=== PATIENT | female | born 1995 | race African-American/Black ===

== ENCOUNTER 2018-02-14 08:22 | Emergency (ER) | payer OTHER ==
[2018-02-14 08:40] VITALS: BP 116/61; PULSE 87; TEMP 98.6; BMI 21.6
--- NOTE | 2018-02-14 09:23 | PDOC ---
History of Present Illness - General Chief Complaint: Rash Stated Complaint: RASH Time Seen by Provider: 02/14/18 08:40 History Source: Patient Exam Limitations: No Limitations - History of Present Illness Initial Comments: 02/14/18 09:18 This is a 22-year-old woman without significant past medical history who presents emergency Department with pruritic rash to her extremities for the past 2 days since returning from the [facility]. Patient states she's been using medicated lotions she's been prescribed for her eczema which has helped alleviate symptoms. She denies fevers, chills, headaches, difficulty swallowing, difficulty breathing, drooling Past History - Past Medical History Allergies/Adverse Reactions: Allergies Allergy/AdvReac Type Severity Reaction Status Date / Time No Known Allergies Allergy Verified 02/14/18 08:36 Home Medications: Ambulatory Orders Mag Hydrox/Al Hydrox/Simeth [Mylanta Liquid] 30 ml PO QID #1 bottle 03/30/14 Ondansetron [Zofran Odt -] 4 mg SL BID #14 od.tablet 03/30/14 Mometasone Furoate 15 gm TP TID #1 tube 02/14/18 COPD: No - Immunization History Immunization Up to Date: Yes - Suicide/Smoking/Psychosocial Hx Smoking History: Never smoked Have you smoked in the past 12 months: No Number of Cigarettes Smoked Daily: 0 Information on smoking cessation initiated: No Hx Alcohol Use: No Drug/Substance Use Hx: Yes Substance Use Type: Marijuana Review of Systems - Review of Systems Able to Perform ROS?: Yes Is the patient limited Faroese proficient: No Constitutional: No: Symptoms Reported HEENTM: No: Symptoms Reported Respiratory: No: Symptoms reported Cardiac (ROS): No: Symptoms Reported ABD/GI: No: Symptoms Reported : No: Symptoms Reported Musculoskeletal: No: Symptoms Reported Integumentary: Yes: See HPI Neurological: No: Symptoms reported Endocrine: No: Symptoms Reported Hematologic/Lymphatic: No: Symptoms Reported *Physical Exam - Vital Signs Last Vital Signs Temp Pulse Resp BP Pulse Ox 98.6 F 87 20 116/61 100 02/14/18 08:37 02/14/18 08:37 02/14/18 08:37 02/14/18 08:37 02/14/18 08:37 - Physical Exam General Appearance: Yes: Appropriately Dressed. No: Apparent Distress HEENT: positive: EOMI, DONTAE, Normal ENT Inspection, Normal Voice Neck: positive: Trachea midline, Supple. negative: Stridor Respiratory/Chest: positive: Lungs Clear, Normal Breath Sounds. negative: Respiratory Distress, Accessory Muscle Use Integumentary: positive: Rash (Scattered maculopapular rash noted to extremities x4) Neurologic: positive: Alert, Normal Response Medical Decision Making - Medical Decision Making 02/14/18 09:21 A/P: 22-year-old female without significant medical history with rash to extremities 4 Scattered pruritic raised pink maculopapular rash extending from the tops of the feet to the knees and from the dorsum of the hands to the elbows Lungs clear to auscultation bilaterally No stridor present No oropharyngeal edema noted Mometasone prescription as an outpatient with referral for dermatology *DC/Admit/Observation/Transfer Diagnosis at time of Disposition: Dermatitis - Discharge Dispostion Disposition: HOME Condition at time of disposition: Stable Decision to Admit order: No - Prescriptions Prescriptions: Mometasone Furoate 15 gm TP TID #1 tube - Referrals Referrals: Cole Bernard [Non Staff, Medical] - - Patient Instructions Additional Instructions: Apply mometasone cream to rash 3 times a day until symptoms resolve. You've been given a referral for helicopter pilot Dr. Bernard. Make an appointment if symptoms do not resolve within the next 7 days. Return to emergency department for shortness of breath, difficulty swallowing, difficulty breathing, wheezing or any other concerns. Thank you very much for choosing us to provide your emergent health care needs. - Post Discharge Activity
== END 2018-02-14 09:29 | disposition home or self-care (01) ==
LOC: JER 08:22 → JERFT 08:22
DX: L30.9 Dermatitis, unspecified (principal)
CPT/HCPCS: 99281-25

== ENCOUNTER 2018-10-17 14:02 | Inpatient (IN) | payer OTHER ==
--- NOTE | 2018-10-17 14:10 | PDOC ---
Rapid Medical Evaluation Chief Complaint: Pain, Acute Time Seen by Provider: 10/17/18 14:09 Medical Evaluation: Allergies Allergy/AdvReac Type Severity Reaction Status Date / Time No Known Allergies Allergy Verified 02/14/18 08:36 10/17/18 14:09 I have performed a brief in person evaluation of this patient. The patient presents with the CC of: abd pain HPI: Pt is a 23 YO female who complains of lower abd pain x 3 days. No hx of abd surgeries. LMP was the end of August 2018. PE: Skin: Clear Lungs: Clear Heart: RRR Abd: tender in the RLQ MS: Moves all extremities without difficulty Neuro: Alert and oriented Psych: Appropriate affect I have ordered the following: abd protocol ordered Pt will proceed to the main ED for further evaluation. Discharge Disposition - Diagnosis Abdominal pain Qualifiers: Abdominal location: right lower quadrant Qualified Code(s): R10.31 - Right lower quadrant pain - Discharge Dispostion Condition at time of disposition: Stable - Referrals - Patient Instructions - Post Discharge Activity
[2018-10-17 14:11] VITALS: BMI 21.7
--- NOTE | 2018-10-17 14:22 | PDOC ---
Attending Attestation - HPI HPI: 10/17/18 17:38 The patient is a 23 yo Female with a significant past medical history of non-op appendicitis who presents for 3 days of right lower abdominal pain. She states the pain onset was gradual. She states that on Monday the pain was dull, however , developed sharp pain to her RLQ on Monday. She also states she has been constipated for 3 days and had a loose BM today which alleviated her sharp pain . She reports a continued dull pain. Secondarily, she reports dysuria and states she went to urgent care where she was told she also has a UTI. The patient denies chest pain, shortness of breath, headache and dizziness. The patient denies fever, chills, nausea, vomit. The patient denies dysuria, frequency, urgency and hematuria. Allergies: NKDA Past surgical history: none reported - Physicial Exam PE: 10/17/18 17:38 GENERAL: The patient is in no acute distress. HEAD: Normal with no signs of trauma. EYES: PERRLA, EOMI, sclera anicteric, conjunctiva clear. ENT: Ears normal, nares patent, oropharynx clear without exudates. Moist mucous membranes. NECK: Normal range of motion, supple without lymphadenopathy, JVD, or masses. LUNGS: Breath sounds equal, clear to auscultation bilaterally. No wheezes, and no crackles. HEART:Regular rate and rhythm, normal S1 and S2 without murmur, rub or gallop. ABDOMEN: (+) RLQ tenderness. Soft, normoactive bowel sounds. No guarding, no rebound. No masses palpable. EXTREMITIES: Normal range of motion, no edema. No clubbing or cyanosis. No erythema, or tenderness. NEUROLOGICAL: Cranial nerves II through XII grossly intact. Normal speech. No focal neurological deficits. MUSCULOSKELETAL: Back non-tender to palpation, no CVA tenderness SKIN: Warm, Dry, normal turgor, no rashes or lesions noted. - Medical Decision Making 10/17/18 17:39 Documentation prepared by Earline Pena, acting as medical physics professor for Sharmin Pal MD <Earline Pena - Last Filed: 10/17/18 17:38> - Resident Resident Name: James Bates - ED Attending Attestation I have performed the following: I have examined & evaluated the patient, The case was reviewed & discussed with the resident, I agree w/resident's findings & plan, Exceptions are as noted - Medical Decision Making 10/17/18 16:49 EKG : Sinus tachycardia rate of 108 bpm, axis nml, intervals nml, no st elevation or depression RLQ tenderness and fever DD: Appendicitis, PID/TOA, UTI, obstructing kidney stone, Viral syndrome Will do: Labs CT Tylenol IVF ReAssess Dr Chandra in the ER to see this patient 10/18/18 12:[address] demonstrates pelvic fluid, appendix not visualized, no obstructing stone seen Pt admitted to hospitalist for serial abdominal examinations Will treat for UTI <Sharmin Pal - Last Filed: 10/18/18 12:20>
--- NOTE | 2018-10-17 14:23 | PDOC ---
History of Present Illness - General Chief Complaint: Pain, Acute Stated Complaint: R/O APPENDICITIS Time Seen by Provider: 10/17/18 14:09 - History of Present Illness Initial Comments: The pt is a 23F w/ a history of non-op appendicitis, ovarian cysts (reported possible PCOS) who presents for 3d of RLQ abdominal pain. Pain fluctuates between sharp and focal to dull and lower diffuse. Pain is worse with movement/ touch, better with recumbency, and is associated w/ nausea. She denies vomiting or diarrhea. She endorses dysuria and small hematuria as well as subjective fevers. Denies WARNER, vision changes, chest pain, SOB, or changes in sensation 10/17/18 15:15 Past History - Past Medical History Allergies/Adverse Reactions: Allergies Allergy/AdvReac Type Severity Reaction Status Date / Time No Known Allergies Allergy Verified 02/14/18 08:36 Home Medications: Ambulatory Orders NK [No Known Home Medication] 10/17/18 COPD: No Psychiatric Problems: No - Surgical History Cholecystectomy: No Lung Surgery: No - Immunization History Immunization Up to Date: Yes - Suicide/Smoking/Psychosocial Hx Smoking History: Never smoked Have you smoked in the past 12 months: No Number of Cigarettes Smoked Daily: 0 Information on smoking cessation initiated: No Hx Alcohol Use: No Drug/Substance Use Hx: No Substance Use Type: None Review of Systems - Review of Systems Able to Perform ROS?: Yes Comments:: GENERAL/CONSTITUTIONAL: No weakness HEAD, EYES, EARS, NOSE AND THROAT: No change in vision. No ear pain or discharge. No sore throat CARDIOVASCULAR: No chest pain or shortness of breath RESPIRATORY: Denies cough, hemoptysis GASTROINTESTINAL: per HPI GENITOURINARY: +dysuria, hematuria MUSCULOSKELETAL: No joint or muscle swelling or pain. No neck or back pain SKIN: No rash NEUROLOGIC: No headache, vertigo, loss of consciousness, or change in strength/ sensation ENDOCRINE: No increased thirst. No abnormal weight change HEMATOLOGIC/LYMPHATIC: No anemia, easy bleeding, or history of blood clots ALLERGIC/IMMUNOLOGIC: No hives or skin allergy 10/17/18 14:22 Is the patient limited Macedonian proficient: No *Physical Exam - Vital Signs Last Vital Signs Temp Pulse Resp BP Pulse Ox 102.8 F H 121 H 18 129/72 100 10/17/18 14:08 10/17/18 14:08 10/17/18 14:08 10/17/18 14:08 10/17/18 14:08 - Physical Exam Comments: GENERAL: Awake, alert, and fully oriented, in no acute distress HEAD: No signs of trauma, normocephalic, atraumatic EYES: PERRLA, EOMI, sclera anicteric, conjunctiva clear ENT: Hearing grossly normal, nares patent, oropharynx clear without exudates. No uvular deviation. Moist mucosa LUNGS: No distress, speaks full sentences, clear to auscultation bilaterally HEART: Regular rate and rhythm, normal S1 and S2, no murmurs appreciated, peripheral pulses normal and equal bilaterally ABDOMEN: Soft, non-distended, RLQ TTP w/ rebound w/o guarding, +BS EXTREMITIES : Normal inspection, Normal range of motion, no edema. No clubbing or cyanosis NEUROLOGICAL: Cranial nerves II through XII grossly intact. Normal speech, normal gait, no focal sensorimotor deficits SKIN: Warm, Dry 10/17/18 14:22 Moderate Sedation - Procedure Monitoring Vital Signs: Procedure Monitoring Vital Signs Temperature 102.8 F H 10/17/18 14:08 Pulse Rate 121 H 10/17/18 14:08 Respiratory Rate 18 10/17/18 14:08 Blood Pressure 129/72 10/17/18 14:08 O2 Sat by Pulse Oximetry (%) 100 10/17/18 14:08 ED Treatment Course - LABORATORY CBC & Chemistry Diagram: 10/18/18 06:00 10/18/18 06:00 Medical Decision Making - Medical Decision Making The patient is a 23F w/ 3d of RLQ abdominal pain w/ associated nausea, dysuria, and hematuria Ddx: appendicitis, UTI/pyelo, ovarian cyst/rupture, considered but not likely colitis, ectopic /TOA, fibroids ED Course CMP, CBC, T/S, Lactate, Coags, UA, UCx ECG CT A&P w/ IV contrast UA w/ evidence of UTI 10/17/18 15:26 POCUS significant for cystitis, appendix not identified Will hold abx for now until CT 10/17/18 16:57 CT w/o definite evidence of appendicitis, evidence of cystitis seen again -Will not consult surgery at this time UTI -Rocephin 1g IV once 10/17/18 17:53 Plan for admit for IV abx for UTI v pyelo Pt continues to be febrile despite Ofirmev and IVF 10/17/18 18:22 Patient reports improvement in symptoms s/p Tylenol 10/17/18 18:46 Dispo: Admit *DC/Admit/Observation/Transfer Diagnosis at time of Disposition: Abdominal pain Qualifiers: Abdominal location: right lower quadrant Qualified Code(s): R10.31 - Right lower quadrant pain UTI (urinary tract infection) Qualifiers: Urinary tract infection type: acute cystitis Hematuria presence: without hematuria Qualified Code(s): N30.00 - Acute cystitis without hematuria - Discharge Dispostion Condition at time of disposition: Good Decision to Admit order: Yes - Referrals - Patient Instructions - Post Discharge Activity
[2018-10-17] MEDS ORDERED: ACETAMINOPHEN INJECTION 100 ML IVPB ONE (14:40)
[2018-10-17] MEDS ORDERED: ACETAMINOPHEN 1000 MG/100 ML VIAL (NON FORMULARY) IVPB ONE (14:56)
[2018-10-17] MEDS ORDERED: SODIUM CHLORIDE 0.9% 500 ML INFUS.BAG IV ONE (14:56)
[2018-10-17 14:57] LABS: URINE APPEARANCE SLCLOUDY; URINE BILIRUBIN NEGATIVE (<2.0 mg/dL); URINE COLOR YELLOW; URINE GLUCOSE (UA) NEGATIVE (NEGATIVE); URINE KETONE 1+ (NEGATIVE); URINE LEUK ESTERASE 3+ (NEGATIVE); URINE NITRITE NEGATIVE (NEGATIVE); URINE PROTEIN 1+ (NEGATIVE); URINE UROBILINOGEN NEGATIVE mg/dL (0.2-1.0)
[2018-10-17 15:17] LABS: EPI CELLS RARE /HPF (FEW); URINE BACTERIA MANY /hpf (NONE SEEN); URINE MUCUS FEW
[2018-10-17 15:18] LABS: BASO % 0.2 % (0-2.0); HEMATOCRIT 34.7 % (32.4-45.2); HEMOGLOBIN 11.7 GM/dL (10.7-15.3); MCH 29.1 pg (25.7-33.7); MCHC 33.7 g/dl (32.0-36.0); MEAN CELL VOLUME 86.4 fl (80-96); MEAN PLT VOLUME 8.3 fl (7.5-11.1); MONO % 8.6 % (3.8-10.2); NEUT % 84.2 % (42.8-82.8); PLATELET COUNT 234 K/MM3 (134-434); RBC 4.01 M/mm3 (3.60-5.2); RDW 12.8 % (11.6-15.6); WHITE BLOOD COUNT 10.2 K/mm3 (4.0-10.0)
[2018-10-17 15:32] LABS: INR 1.34 (0.83-1.09); PROTHROMBIN TIME (PATIENT) 15.9 SEC (9.7-13.0)
[2018-10-17 15:35] LABS: ACTIVATED PTT 34.8 SECONDS (25.2-36.5)
[2018-10-17 16:05] LABS: ALK PHOS 56 U/L (45-117); ANION GAP 9 MMOL/L (8-16); BILIRUBIN,TOTAL 0.9 mg/dL (0.2-1); BLOOD UREA NITROGEN 10 mg/dL (7-18); CALCIUM 8.7 mg/dL (8.5-10.1); CHLORIDE 97 mmol/L (98-107); CO2 26 mmol/L (21-32); CREATININE 0.9 mg/dL (0.55-1.3); GLUCOSE,RANDOM 96 mg/dL (74-106); LIPASE 72 U/L (73-393); POTASSIUM 3.2 mmol/L (3.5-5.1); SGOT/AST 13 U/L (15-37); SGPT/ALT 13 U/L (13-61); SODIUM 133 mmol/L (136-145); TOT PROT 8.3 g/dl (6.4-8.2)
[2018-10-17] MEDS ORDERED: ONDANSETRON 4 MG/2 ML VIAL IVPUSH ONE (16:20)
[2018-10-17] MEDS ORDERED: ONDANSETRON 4 MG/2 ML VIAL ONE (16:27)
[2018-10-17] MEDS: SODIUM CHLORIDE 1,000 ML IV SCH ×2 (16:34→16:43)
[2018-10-17] MEDS: LACTATED RINGERS SOLUTION 1,000 ML/1,000 ML INFUS.BAG IV SCH (16:43)
[2018-10-17] MEDS ORDERED: CEFTRIAXONE 1 GM in DEXTROSE 5%-WATER - 50 ML IVPB ONE (18:16)
[2018-10-17] MEDS ORDERED: CEFTRIAXONE 1 GM/50 ML BAG ONE (18:29)
--- NOTE | 2018-10-17 19:08 | EKG ---
Test Reason : Blood Pressure : / mmHG Vent. Rate : 108 BPM Atrial Rate : 108 BPM P-R Int : 142 ms QRS Dur : 076 ms QT Int : 314 ms P-R-T Axes : 068 076 061 degrees QTc Int : 420 ms SINUS TACHYCARDIA OTHERWISE NORMAL ECG WHEN COMPARED WITH ECG OF 11-AUG-2013 16:17, NO SIGNIFICANT CHANGE WAS FOUND Confirmed by ANNA DUGGAN MD ([id number]) on 10/17/2018 7:08:08 PM Referred By: Confirmed By:ANNA DUGGAN MD
--- NOTE | 2018-10-17 19:18 | HP ---
CHIEF COMPLAINT: abd pain/fever PCP: none HISTORY OF PRESENT ILLNESS: Patient is a 23 yo with a PMHx of non-op appendicitis (last year), HPV, presented with 7/10, intermittent, non-radiating, RLQ abdominal pain that started 2 days ago. Patient then developed fevers, nausea, and chills yesterday. Denies vomiting. She said these symptoms were similar to her appendicitis symptoms last year. She mentions that she had a "kidney infection" last year and was treated at [facility] with no memory of the details. She also endorses an increase in urinary frequency with discomfort when urinating. She denies travel, sick contacts, vomiting, sob, chest pain, bloody stool, vaginal discharge, changes in bowel movements. LMP: 09/13, usually last 1 week. Last [employer]PER[employer] visit this past summer. ER course was notable for: (1) Temp 102.8, HR 121 (2) U/a +: 3+ LE, 303 WBC (3) CT w/o definite evidence of appendicitis, evidence of cystitis seen again Recent Travel: denies PAST MEDICAL HISTORY: per hpi PAST SURGICAL HISTORY: n/a Social History: Smoking: denies tobacco Alcohol: occasionally Drugs: marijuana 5x a week Sexually active with boyfriend. 1 partner only. No contraception Family History: Allergies No Known Allergies Allergy (Verified 02/14/18 08:36) HOME MEDICATIONS: Home Medications Medication Instructions Recorded NK [No Known Home Medication] 10/17/18 REVIEW OF SYSTEMS CONSTITUTIONAL: fevers, chills Absent: diaphoresis, generalized weakness, malaise, loss of appetite, weight change HEENT: Absent: rhinorrhea, nasal congestion, throat pain, throat swelling, difficulty swallowing, mouth swelling, ear pain, eye pain, visual changes CARDIOVASCULAR: Absent: chest pain, syncope, palpitations, irregular heart rate, lightheadedness , peripheral edema RESPIRATORY: Absent: cough, shortness of breath, dyspnea with exertion, orthopnea, wheezing, stridor, hemoptysis GASTROINTESTINAL: abd pain, nausea Absent: abdominal distension, vomiting, diarrhea, constipation, melena, hematochezia GENITOURINARY: Absent: dysuria, frequency, urgency, hesitancy, hematuria, flank pain, genital pain MUSCULOSKELETAL: Absent: myalgia, arthralgia, joint swelling, back pain, neck pain SKIN: Absent: rash, itching, pallor HEMATOLOGIC/IMMUNOLOGIC: Absent: easy bleeding, easy bruising, lymphadenopathy, frequent infections ENDOCRINE: Absent: unexplained weight gain, unexplained weight loss, heat intolerance, cold intolerance NEUROLOGIC: Absent: headache, focal weakness or paresthesias, dizziness, unsteady gait, seizure, mental status changes, bladder or bowel incontinence PSYCHIATRIC: Absent: anxiety, depression, suicidal or homicidal ideation, hallucinations. PHYSICAL EXAMINATION Vital Signs - 24 hr 10/17/18 10/17/18 10/17/18 14:08 16:00 18:38 Temperature 102.8 F H 101.3 F H 99.4 F Pulse Rate 121 H Pulse Rate [ 110 H 84 Apical] Respiratory 18 18 17 Rate Blood Pressure 129/72 Blood Pressure 101/66 105/70 [Left Arm] O2 Sat by Pulse 100 98 100 Oximetry (%) GENERAL: Awake, alert, and fully oriented, in no acute distress. HEAD: Normal with no signs of trauma. EYES: extraocular movements intact, sclera anicteric, conjunctiva clear. No lid lag. EARS, NOSE, THROAT: oropharynx clear without exudates. Moist mucous membranes. NECK: supple without lymphadenopathy, JVD, or masses. LUNGS: Breath sounds equal, clear to auscultation bilaterally. No wheezes, and no crackles. HEART: Regular rate and rhythm, normal S1 and S2 without murmur, rub or gallop. ABDOMEN: soft, RLQ tenderness. R CVA tenderness, no guarding, no rebound, negative laughlin, negative rovsings UPPER EXTREMITIES: 2+ pulses, warm, well-perfused. No cyanosis. No clubbing. No peripheral edema. LOWER EXTREMITIES: 2+ pulses, warm, well-perfused. No calf tenderness. No peripheral edema. NEUROLOGICAL: Cranial nerves II-XII intact. Normal speech. Normal gait. PSYCHIATRIC: Cooperative. Good eye contact. Appropriate mood and affect. SKIN: Warm, dry, normal turgor, no rashes or lesions noted, normal capillary refill. Laboratory Results - last 24 hr 10/17/18 10/17/18 10/17/18 14:23 14:23 15:00 WBC 10.2 H RBC 4.01 Hgb 11.7 Hct 34.7 MCV 86.4 MCH 29.1 MCHC 33.7 RDW 12.8 Plt Count 234 MPV 8.3 Absolute Neuts (auto) 8.6 H Neutrophils % 84.2 H Lymphocytes % 7.0 L D Monocytes % 8.6 Eosinophils % 0.0 D Basophils % 0.2 Nucleated RBC % 0 PT with INR INR PTT (Actin FS) Sodium Potassium Chloride Carbon Dioxide Anion Gap BUN Creatinine Creat Clearance w eGFR Random Glucose Lactic Acid Calcium Total Bilirubin AST ALT Alkaline Phosphatase Total Protein Albumin Lipase Urine Color Yellow Urine Appearance Slcloudy Urine pH 5.0 D Ur Specific [place] 1.015 Urine Protein 1+ H Urine Glucose (UA) Negative Urine Ketones 1+ H Urine Blood 2+ H Urine Nitrite Negative Urine Bilirubin Negative Urine Urobilinogen Negative Ur Leukocyte Esterase 3+ H Urine WBC (Auto) 303 Urine RBC (Auto) 25 Ur Epithelial Cells Rare Urine Bacteria Many Urine Mucus Few Urine HCG, Qual Negative Blood Type Antibody Screen 10/17/18 10/17/18 10/17/18 15:00 15:00 15:00 WBC RBC Hgb Hct MCV MCH MCHC RDW Plt Count MPV Absolute Neuts (auto) Neutrophils % Lymphocytes % Monocytes % Eosinophils % Basophils % Nucleated RBC % PT with INR 15.90 H INR 1.34 H PTT (Actin FS) 34.8 Sodium 133 L Potassium 3.2 L Chloride 97 L Carbon Dioxide 26 Anion Gap 9 BUN 10 Creatinine 0.9 Creat Clearance w eGFR > 60 Random Glucose 96 Lactic Acid Calcium 8.7 Total Bilirubin 0.9 AST 13 L ALT 13 Alkaline Phosphatase 56 Total Protein 8.3 H Albumin 4.0 Lipase 72 L Urine Color Urine Appearance Urine pH Ur Specific [place] Urine Protein Urine Glucose (UA) Urine Ketones Urine Blood Urine Nitrite Urine Bilirubin Urine Urobilinogen Ur Leukocyte Esterase Urine WBC (Auto) Urine RBC (Auto) Ur Epithelial Cells Urine Bacteria Urine Mucus Urine HCG, Qual Blood Type O POSITIVE Antibody Screen Negative 10/17/18 10/17/18 15:00 15:00 WBC RBC Hgb Hct MCV MCH MCHC RDW Plt Count MPV Absolute Neuts (auto) Neutrophils % Lymphocytes % Monocytes % Eosinophils % Basophils % Nucleated RBC % PT with INR INR PTT (Actin FS) Sodium Potassium Chloride Carbon Dioxide Anion Gap BUN Creatinine Creat Clearance w eGFR Random Glucose Lactic Acid 1.2 Calcium Total Bilirubin AST ALT Alkaline Phosphatase Total Protein Albumin Lipase Urine Color Urine Appearance Urine pH Ur Specific [place] Urine Protein Urine Glucose (UA) Urine Ketones Urine Blood Urine Nitrite Urine Bilirubin Urine Urobilinogen Ur Leukocyte Esterase Urine WBC (Auto) Urine RBC (Auto) Ur Epithelial Cells Urine Bacteria Urine Mucus Urine HCG, Qual Blood Type Cancelled Antibody Screen ASSESSMENT/PLAN: 23 yo with a PMHx of non-op appendicitis (last year), HPV, presented with 7/10 , intermittent, non-radiating, RLQ abdominal pain, fevers, chills with urinary discomfort. #Sepsis 2/2 Acute Pyelonephritis/Complicated UTI -Temp 102.8, HR 121 -U/a +: 3+ LE, 303 WBC -CT w/o definite evidence of appendicitis, evidence of cystitis seen again -1x Ceftriaxone in ED -Cont. Ceftriaxone 2gm daily -IV fluids -Bcx, ucx -Tylenol PRN for pain/fever #FEN -IV fluids @ 75 -monitor -regular diet #Dvt -lovenox 40 sq dispo: obs Visit type - Emergency Visit Emergency Visit: Yes ED Registration Date: 10/18/18 Care time: The patient presented to the Emergency Department on the above date and was hospitalized for further evaluation of their emergent condition. - New Patient This patient is new to me today: Yes Date on this admission: 10/19/18 - Critical Care Critical Care patient: No
[2018-10-17] MEDS ORDERED: POTASSIUM CHLORIDE TABS 20 MEQ TABLET.ER (FP) PO ONE (19:33)
--- NOTE | 2018-10-17 19:36 | PN ---
Teaching Attending Note Name of Resident: Yenifer Lynch ATTENDING PHYSICIAN STATEMENT I saw and evaluated the patient. I reviewed the resident's note and discussed the case with the resident. I agree with the resident's findings and plan as documented. SUBJECTIVE: Patient is a 23 year old woman with PMH of non-operative appendicitis and ovarian cysts (reported possible PCOS) who presents for 3 days of RLQ abdominal pain. Pain fluctuates between sharp and focal to dull and lower diffuse. Pain is worse with movement/touch, better with recumbency, and is associated with nausea. She denies vomiting or diarrhea. She has dysuria and small hematuria as well as subjective fevers. Smokes marijuana 5 times a week. No abnormal vaginal discharge. Denies headache, vision changes, chest pain, SOB, or changes in sensation. LMP was 09/13/2018. OBJECTIVE: Alert Vital Signs Period Temp Pulse Resp BP Sys/Noel Pulse Ox Last 24 Hr 99.4 F-102.8 F 84-121 17-18 101-129/66-72 98-100 HEENT: No Jaundice, eye redness or discharge, PERRLA, EOMI. Normocephalic, atraumatic. External ears are normal and hearing is grossly intact. No nasal discharge. Neck: Supple, nontender. No palpable adenopathy or thyromegaly. No JVD Chest: Good effort. Clear to auscultation and percussion. Heart: Regular. No S3, rub or murmur Abdomen: Not distended, soft, RLQ tenderness and no HSM. No rebound or guarding. Normoactive bowel sounds. Ext: Peripheral pulses intact. No leg edema. Skin: Warm and dry. No petechiae, rash or ecchymosis. Neuro: Alert. Oriented x3. CN 2-12 grossly intact. Sensation grossly intact in all four extremities and DTR are symmetric. Pelvic Exam: Performed by the medical billing assistant showed right adnexal tenderness, but no Cervical motion tenderness or abnormal vaginal discharge. Current Medications Generic Name Dose Route Start Last Admin Trade Name Freq PRN Reason Stop Dose Admin Acetaminophen 650 mg 10/17/18 19:17 Tylenol - PO Q4H PRN FEVER Enoxaparin Sodium 40 mg 10/18/18 10:00 Lovenox - SQ DAILY BILLY Sodium Chloride 1,000 mls @ 75 mls/hr 10/17/18 16:30 10/17/18 16:43 Normal Saline - IV Not Given ASDIR BILLY Lactated Ringer's 1,000 ml in 1,000 mls @ 125 mls/hr 10/17/18 16:45 10/17/18 16:43 Lactated Ringers Solution IV 125 mls/hr ASDIR BILLY Administration Ceftriaxone Sodium 2 gm/ 100 mls @ 200 mls/hr 10/18/18 10:00 Dextrose IVPB DAILY BILLY Home Medications Medication Instructions Recorded NK [No Known Home Medication] 10/17/18 Abnormal Lab Results 10/17/18 10/17/18 10/17/18 14:23 15:00 15:00 WBC 10.2 H Absolute Neuts (auto) 8.6 H Neutrophils % 84.2 H Lymphocytes % 7.0 L D PT with INR INR Sodium 133 L Potassium 3.2 L Chloride 97 L AST 13 L Total Protein 8.3 H Lipase 72 L Urine Protein 1+ H Urine Ketones 1+ H Urine Blood 2+ H Ur Leukocyte Esterase 3+ H 10/17/18 15:00 WBC Absolute Neuts (auto) Neutrophils % Lymphocytes % PT with INR 15.90 H INR 1.34 H Sodium Potassium Chloride AST Total Protein Lipase Urine Protein Urine Ketones Urine Blood Ur Leukocyte Esterase ASSESSMENT AND PLAN: 1. Pyelonephritis - CT scan of the abdomen showed right cystic adnexal changes and evidence of cystitis but no definite evidence of appendicitis. Being treated with IV Rocephin and IV NS. Serology sent for Neisseria Gonorrhea and Chlamydia. She is getting a transvaginal ultrasound. Hypokalemia is unexplained - may be partly due to vomiting. Will check serum Mg+ and give PO KCL. 2. DVT prophylaxis - Lovenox 40 mg SQ q 24 hours. 3. Advance directives - Full code
[2018-10-17] MEDS ORDERED: POTASSIUM CHLORIDE TABS 10 MEQ TABLET.ER (FP) ONE (20:14)
[2018-10-17] MEDS ORDERED: ACETAMINOPHEN 325 MG TABLET (FP) ONE (20:17)
[2018-10-17] MEDS: ACETAMINOPHEN 325 MG TABLET (FP) PO PRN (20:23)
[2018-10-18] MEDS: LACTATED RINGERS SOLUTION 1,000 ML/1,000 ML INFUS.BAG IV SCH ×2 (01:02→10:20)
[2018-10-18] MEDS: ACETAMINOPHEN 325 MG TABLET (FP) PO PRN ×3 (05:57→18:57)
[2018-10-18 07:50] LABS: BASO % 0.3 % (0-2.0); HEMOGLOBIN 10.1 GM/dL (10.7-15.3); LYMPH % 11.9 % (8-40); MCH 29.7 pg (25.7-33.7); MCHC 34.8 g/dl (32.0-36.0); MEAN CELL VOLUME 85.5 fl (80-96); MONO % 14.4 % (3.8-10.2); NEUT % 73.4 % (42.8-82.8); PLATELET COUNT 190 K/MM3 (134-434); RDW 12.8 % (11.6-15.6); WHITE BLOOD COUNT 8.8 K/mm3 (4.0-10.0)
[2018-10-18 08:24] LABS: ALK PHOS 49 U/L (45-117); ANION GAP 9 MMOL/L (8-16); BILIRUBIN,TOTAL 0.6 mg/dL (0.2-1); BLOOD UREA NITROGEN 5 mg/dL (7-18); CALCIUM 8.2 mg/dL (8.5-10.1); CHLORIDE 105 mmol/L (98-107); CO2 24 mmol/L (21-32); CREATININE 0.8 mg/dL (0.55-1.3); GLUCOSE,RANDOM 115 mg/dL (74-106); MAGNESIUM 1.4 mg/dL (1.8-2.4); PHOSPHOROUS 2.6 mg/dL (2.5-4.9); POTASSIUM 3.5 mmol/L (3.5-5.1); SGOT/AST 13 U/L (15-37); SGPT/ALT 13 U/L (13-61); SODIUM 138 mmol/L (136-145); TOT PROT 6.4 g/dl (6.4-8.2)
--- NOTE | 2018-10-18 08:58 | PN ---
Teaching Attending Note Name of Resident: Mony Wallis ATTENDING PHYSICIAN STATEMENT I saw and evaluated the patient. I reviewed the resident's note and discussed the case with the resident. I agree with the resident's findings and plan as documented. SUBJECTIVE: Patient is comfortable with no acute distress, no shortness of breath, positive for fever, improving , less cva tenderness as per patient. OBJECTIVE: Vital Signs Temperature 102.4 F H 10/18/18 06:00 Pulse Rate 104 H 10/18/18 06:00 Respiratory Rate 18 10/18/18 06:00 Blood Pressure 102/55 L 10/18/18 06:00 O2 Sat by Pulse Oximetry (%) 100 10/18/18 04:00 GENERAL: Awake, alert, and fully oriented, in no acute distress. HEAD: Normal with no signs of trauma. EYES: extraocular movements intact, sclera anicteric, conjunctiva clear. EARS, NOSE, THROAT: oropharynx clear without exudates. Moist mucous membranes. NECK: supple without lymphadenopathy, JVD, or masses. LUNGS: Breath sounds equal, clear to auscultation bilaterally. No wheezes, and no crackles. HEART: Regular rate and rhythm, normal S1 and S2 without murmur, rub or gallop. ABDOMEN: soft,R CVA tenderness today, no guarding, no rebound, EXTREMITIES: 2+ pulses, warm, well-perfused. No cyanosis. No clubbing. No peripheral edema. NEUROLOGICAL: Cranial nerves II-XII intact. Normal speech. Normal gait. PSYCHIATRIC: Cooperative. Good eye contact. Appropriate mood and affect. SKIN: Warm, dry, normal turgor, no rashes or lesions noted, normal capillary refill. CBCD WBC 8.8 K/mm3 (4.0-10.0) 10/18/18 06:00 RBC 3.40 M/mm3 (3.60-5.2) L 10/18/18 06:00 Hgb 10.1 GM/dL (10.7-15.3) L 10/18/18 06:00 Hct 29.0 % (32.4-45.2) L D 10/18/18 06:00 MCV 85.5 fl (80-96) 10/18/18 06:00 MCHC 34.8 g/dl (32.0-36.0) 10/18/18 06:00 RDW 12.8 % (11.6-15.6) 10/18/18 06:00 Plt Count 190 K/MM3 (134-434) 10/18/18 06:00 MPV 8.0 fl (7.5-11.1) 10/18/18 06:00 CMP Sodium 138 mmol/L (136-145) 10/18/18 06:00 Potassium 3.5 mmol/L (3.5-5.1) 10/18/18 06:00 Chloride 105 mmol/L (98-107) 10/18/18 06:00 Carbon Dioxide 24 mmol/L (21-32) 10/18/18 06:00 Anion Gap 9 MMOL/L (8-16) 10/18/18 06:00 BUN 5 mg/dL (7-18) L 10/18/18 06:00 Creatinine 0.8 mg/dL (0.55-1.3) 10/18/18 06:00 Creat Clearance w eGFR > 60 (>60) 10/18/18 06:00 Random Glucose 115 mg/dL (74-106) H 10/18/18 06:00 Calcium 8.2 mg/dL (8.5-10.1) L 10/18/18 06:00 Total Bilirubin 0.6 mg/dL (0.2-1) 10/18/18 06:00 AST 13 U/L (15-37) L 10/18/18 06:00 ALT 13 U/L (13-61) 10/18/18 06:00 Alkaline Phosphatase 49 U/L (45-117) 10/18/18 06:00 Total Protein 6.4 g/dl (6.4-8.2) 10/18/18 06:00 Albumin 3.0 g/dl (3.4-5.0) L 10/18/18 06:00 Current Medications Generic Name Dose Route Start Last Admin Trade Name Freq PRN Reason Stop Dose Admin Acetaminophen 650 mg 10/17/18 19:17 10/18/18 05:57 Tylenol - PO 650 mg Q4H PRN Administration FEVER Enoxaparin Sodium 40 mg 10/18/18 10:00 Lovenox - SQ DAILY BILLY Sodium Chloride 1,000 mls @ 75 mls/hr 10/17/18 16:30 10/17/18 16:43 Normal Saline - IV Not Given ASDIR BLILY Lactated Ringer's 1,000 ml in 1,000 mls @ 125 mls/hr 10/17/18 16:45 10/18/18 01:02 Lactated Ringers Solution IV 125 mls/hr ASDIR BILLY Administration Ceftriaxone Sodium 2 gm/ 100 mls @ 200 mls/hr 10/18/18 10:00 Dextrose IVPB DAILY BILLY Magnesium Sulfate 1 gm 10/18/18 08:30 Magnesium Sulfate IVPB 10/18/18 09:31 Q1H BILLY Home Medications Medication Instructions Recorded NK [No Known Home Medication] 10/17/18 Microbiology 10/17/18 14:23 Urine - Urine Clean Catch Urine Culture - Preliminary Non Lactose Fermenting Gnb ASSESSMENT AND PLAN: 23 yo with a PMHx of non-op appendicitis (last year), HPV, presented with 7/10 , intermittent, non-radiating, RLQ abdominal pain, fevers, chills with urinary discomfort. #Sepsis due to Acute Pyelonephritis with Complicated UTI, continues to have fever, continue IV antibiotic ceftriaxone 2gm daily, IV fluids, Bcx, ucx pending -Tylenol PRN for pain/fever. Dvt Px: lovenox 40 sq
[2018-10-18] MEDS ORDERED: CEFTRIAXONE 2 GM-D5W BAG 2 GM/50 ML BAG IVPB SCH (10:00)
[2018-10-18] MEDS ORDERED: DEXTROSE 5%-WATER 100 ML IVPB ONE (10:02)
[2018-10-18] MEDS: ENOXAPARIN NA (PORCINE) 40 MG/0.4 ML DISP.SYRIN SQ SCH (10:20)
[2018-10-18] MEDS: CEFTRIAXONE 2 GM in DEXTROSE 5%-WATER 100 ML IVPB SCH (10:20)
[2018-10-18] MEDS: MAGNESIUM SULF 50% (8.12 MEQ/2 ML-1 GM VIAL) IVPB SCH ×2 (11:06→12:22)
--- NOTE | 2018-10-18 15:08 | PN ---
Physical Exam: SUBJECTIVE: Patient seen and examined at bedside this morning. Patient is a 23 year old female with no significant past medical history presented with intermittent 7/10 cramping RLQ pain and dysuria for 2 days. Denies fever, chills , nausea, vomiting, chest pain, SOB, diarrhea. Today, patient still reports RLQ pain accompanied by right lower back pain. OBJECTIVE: Vital Signs Period Temp Pulse Resp BP Sys/Noel Pulse Ox Last 24 Hr 98.3 F-102.4 F 84-117 17-18 96-106/51-82 96-100 GENERAL: The patient is awake, alert, and fully oriented, in no acute distress. HEAD: Normal with no signs of trauma. EYES: PERRLA, EOMI, sclera anicteric, conjunctiva clear. ENT: Ears normal, nares patent, oropharynx clear without exudates, moist mucous membranes. NECK: Trachea midline, full range of motion, supple. LUNGS: Breath sounds equal, clear to auscultation bilaterally. HEART: Regular rate and rhythm, S1, S2 without murmur, rub or gallop. ABDOMEN: Soft, +RLQ tenderness, nondistended, normoactive bowel sounds, +right CVA tenderness EXTREMITIES: 2+ pulses, warm, well-perfused, no edema. NEUROLOGICAL: Cranial nerves II through XII grossly intact. Normal speech, gait not observed. PSYCH: Normal mood, normal affect. SKIN: Warm, dry, normal turgor, no rashes or lesions noted Laboratory Results - last 24 hr 10/17/18 10/17/18 10/17/18 14:23 15:00 15:00 WBC 10.2 H RBC 4.01 Hgb 11.7 Hct 34.7 MCV 86.4 MCH 29.1 MCHC 33.7 RDW 12.8 Plt Count 234 MPV 8.3 Absolute Neuts (auto) 8.6 H Neutrophils % 84.2 H Lymphocytes % 7.0 L D Monocytes % 8.6 Eosinophils % 0.0 D Basophils % 0.2 Nucleated RBC % 0 PT with INR INR PTT (Actin FS) Sodium 133 L Potassium 3.2 L Chloride 97 L Carbon Dioxide 26 Anion Gap 9 BUN 10 Creatinine 0.9 Creat Clearance w eGFR > 60 Random Glucose 96 Lactic Acid Calcium 8.7 Phosphorus Magnesium Total Bilirubin 0.9 AST 13 L ALT 13 Alkaline Phosphatase 56 Total Protein 8.3 H Albumin 4.0 Lipase 72 L Urine Color Yellow Urine Appearance Slcloudy Urine pH 5.0 D Ur Specific [place] 1.015 Urine Protein 1+ H Urine Glucose (UA) Negative Urine Ketones 1+ H Urine Blood 2+ H Urine Nitrite Negative Urine Bilirubin Negative Urine Urobilinogen Negative Ur Leukocyte Esterase 3+ H Urine WBC (Auto) 303 Urine RBC (Auto) 25 Ur Epithelial Cells Rare Urine Bacteria Many Urine Mucus Few Blood Type Antibody Screen 10/17/18 10/17/18 10/17/18 15:00 15:00 15:00 WBC RBC Hgb Hct MCV MCH MCHC RDW Plt Count MPV Absolute Neuts (auto) Neutrophils % Lymphocytes % Monocytes % Eosinophils % Basophils % Nucleated RBC % PT with INR 15.90 H INR 1.34 H PTT (Actin FS) 34.8 Sodium Potassium Chloride Carbon Dioxide Anion Gap BUN Creatinine Creat Clearance w eGFR Random Glucose Lactic Acid 1.2 Calcium Phosphorus Magnesium Total Bilirubin AST ALT Alkaline Phosphatase Total Protein Albumin Lipase Urine Color Urine Appearance Urine pH Ur Specific [place] Urine Protein Urine Glucose (UA) Urine Ketones Urine Blood Urine Nitrite Urine Bilirubin Urine Urobilinogen Ur Leukocyte Esterase Urine WBC (Auto) Urine RBC (Auto) Ur Epithelial Cells Urine Bacteria Urine Mucus Blood Type O POSITIVE Antibody Screen Negative 10/17/18 10/18/18 10/18/18 15:00 06:00 06:00 WBC 8.8 RBC 3.40 L Hgb 10.1 L Hct 29.0 L D MCV 85.5 MCH 29.7 MCHC 34.8 RDW 12.8 Plt Count 190 MPV 8.0 Absolute Neuts (auto) 6.4 Neutrophils % 73.4 Lymphocytes % 11.9 D Monocytes % 14.4 H Eosinophils % 0.0 Basophils % 0.3 Nucleated RBC % 0 PT with INR INR PTT (Actin FS) Sodium 138 Potassium 3.5 Chloride 105 Carbon Dioxide 24 Anion Gap 9 BUN 5 L Creatinine 0.8 Creat Clearance w eGFR > 60 Random Glucose 115 H Lactic Acid Calcium 8.2 L Phosphorus 2.6 Magnesium 1.4 L Total Bilirubin 0.6 AST 13 L ALT 13 Alkaline Phosphatase 49 Total Protein 6.4 Albumin 3.0 L Lipase Urine Color Urine Appearance Urine pH Ur Specific [place] Urine Protein Urine Glucose (UA) Urine Ketones Urine Blood Urine Nitrite Urine Bilirubin Urine Urobilinogen Ur Leukocyte Esterase Urine WBC (Auto) Urine RBC (Auto) Ur Epithelial Cells Urine Bacteria Urine Mucus Blood Type Cancelled Antibody Screen Active Medications Generic Name Dose Route Start Last Admin Trade Name Kalpesh PRN Reason Stop Dose Admin Acetaminophen 650 mg 10/17/18 19:17 10/18/18 10:20 Tylenol - PO 650 mg Q4H PRN Administration FEVER Enoxaparin Sodium 40 mg 10/18/18 10:00 10/18/18 10:20 Lovenox - SQ Not Given DAILY BILLY Lactated Ringer's 1,000 ml in 1,000 mls @ 125 mls/hr 10/17/18 16:45 10/18/18 10:20 Lactated Ringers Solution IV 125 mls/hr ASDIR BILLY Administration Ceftriaxone Sodium 2 gm/ 100 mls @ 200 mls/hr 10/18/18 10:00 10/18/18 10:20 Dextrose IVPB 200 mls/hr DAILY BILLY Administration -TVS: Small left ovarian cyst with bilateral adnexal free fluid -CT AP: No definite evidence of acute appendicitis. Cystic changes right adnexa with free pelvic fluid. Thick-walled urinary bladder. ASSESSMENT/PLAN: Patient is a 23 year old female with no significant past medical history presented with intermittent 7/10 cramping RLQ pain and dysuria for 2 days. #Sepsis 2/2 Complicated UTI, Acute Pyelonephritis -UA on admission: 3+LE, 303WBC -Currently afebrile -Continue ceftriaxone 2gm daily -Blood culture - no growth -Urine culture - nonlactose fermenting gram negative bacilli -Continue IV fluids -Tylenol 650mg PRN for fever or pain. #FEN -IV LR @125ml/hr -Electrolytes wnl, routine bmp monitoring -Regular diet #Prophylaxis -Lovenox 40mg sq daily #Disposition -full code -admit to med-surg Visit type - Emergency Visit Emergency Visit: Yes ED Registration Date: 10/18/18 Care time: The patient presented to the Emergency Department on the above date and was hospitalized for further evaluation of their emergent condition. - New Patient This patient is new to me today: Yes Date on this admission: 10/18/18 - Critical Care Critical Care patient: No
[2018-10-18] MEDS ORDERED: MAGNESIUM SULF 50% (8.12 MEQ/2 ML-1 GM VIAL) IVPB ONE (15:46)
[2018-10-19] MEDS: LACTATED RINGERS SOLUTION 1,000 ML/1,000 ML INFUS.BAG IV SCH ×2 (00:45→16:58)
[2018-10-19] MEDS: ACETAMINOPHEN 325 MG TABLET (FP) PO PRN (06:21)
[2018-10-19 07:16] LABS: HEMATOCRIT 27.5 % (32.4-45.2); HEMOGLOBIN 9.5 GM/dL (10.7-15.3); MCH 29.6 pg (25.7-33.7); MCHC 34.7 g/dl (32.0-36.0); MEAN CELL VOLUME 85.3 fl (80-96); MEAN PLT VOLUME 8.3 fl (7.5-11.1); PLATELET COUNT 164 K/MM3 (134-434); RBC 3.22 M/mm3 (3.60-5.2); RDW 13.2 % (11.6-15.6)
[2018-10-19 07:42] LABS: ANION GAP 5 MMOL/L (8-16); BLOOD UREA NITROGEN 3 mg/dL (7-18); CALCIUM 7.5 mg/dL (8.5-10.1); CHLORIDE 106 mmol/L (98-107); CO2 28 mmol/L (21-32); CREATININE 0.6 mg/dL (0.55-1.3); GLUCOSE,RANDOM 89 mg/dL (74-106); PHOSPHOROUS 2.7 mg/dL (2.5-4.9); POTASSIUM 3.7 mmol/L (3.5-5.1); SODIUM 138 mmol/L (136-145)
[2018-10-19] MEDS ORDERED: DEXTROSE 5%-WATER 100 ML IVPB ONE (08:50)
--- NOTE | 2018-10-19 10:00 | PN ---
Teaching Attending Note Name of Resident: Mony Wallis ATTENDING PHYSICIAN STATEMENT I saw and evaluated the patient. I reviewed the resident's note and discussed the case with the resident. I agree with the resident's findings and plan as documented. SUBJECTIVE: Patient is feeling better with no acute distress. OBJECTIVE: Vital Signs Temperature 102.8 F H 10/19/18 06:00 Pulse Rate 89 10/19/18 06:00 Respiratory Rate 18 10/19/18 06:00 Blood Pressure 101/58 L 10/19/18 06:00 O2 Sat by Pulse Oximetry (%) 100 10/18/18 21:00 Initial Vital Signs Temp Pulse Resp BP Pulse Ox 102.8 F H 121 H 18 129/72 100 10/17/18 14:08 10/17/18 14:08 10/17/18 14:08 10/17/18 14:08 10/17/18 14:08 GENERAL: Awake, alert, and fully oriented, in no acute distress. HEAD: Normal with no signs of trauma. EYES: extraocular movements intact, sclera anicteric, conjunctiva clear. EARS, NOSE, THROAT: oropharynx clear without exudates. Moist mucous membranes. NECK: supple without lymphadenopathy, JVD, or masses. LUNGS: Breath sounds equal, clear to auscultation bilaterally. No wheezes, and no crackles. HEART: Regular rate and rhythm, normal S1 and S2 without murmur, rub or gallop. ABDOMEN: soft,R mild CVA tenderness today, no guarding, no rebound, EXTREMITIES: 2+ pulses, warm, well-perfused. No cyanosis. No clubbing. No peripheral edema. NEUROLOGICAL: Cranial nerves II-XII intact. Normal speech. Normal gait. PSYCHIATRIC: Cooperative. Good eye contact. Appropriate mood and affect. SKIN: Warm, dry, normal turgor, no rashes or lesions noted, normal capillary refill. CBCD WBC 7.0 K/mm3 (4.0-10.0) 10/19/18 06:30 RBC 3.22 M/mm3 (3.60-5.2) L 10/19/18 06:30 Hgb 9.5 GM/dL (10.7-15.3) L 10/19/18 06:30 Hct 27.5 % (32.4-45.2) L 10/19/18 06:30 MCV 85.3 fl (80-96) 10/19/18 06:30 MCHC 34.7 g/dl (32.0-36.0) 10/19/18 06:30 RDW 13.2 % (11.6-15.6) 10/19/18 06:30 Plt Count 164 K/MM3 (134-434) 10/19/18 06:30 MPV 8.3 fl (7.5-11.1) 10/19/18 06:30 CMP Sodium 138 mmol/L (136-145) 10/19/18 06:30 Potassium 3.7 mmol/L (3.5-5.1) 10/19/18 06:30 Chloride 106 mmol/L (98-107) 10/19/18 06:30 Carbon Dioxide 28 mmol/L (21-32) 10/19/18 06:30 Anion Gap 5 MMOL/L (8-16) L 10/19/18 06:30 BUN 3 mg/dL (7-18) L 10/19/18 06:30 Creatinine 0.6 mg/dL (0.55-1.3) 10/19/18 06:30 Creat Clearance w eGFR > 60 (>60) 10/19/18 06:30 Random Glucose 89 mg/dL (74-106) 10/19/18 06:30 Calcium 7.5 mg/dL (8.5-10.1) L 10/19/18 06:30 Total Bilirubin 0.6 mg/dL (0.2-1) 10/18/18 06:00 AST 13 U/L (15-37) L 10/18/18 06:00 ALT 13 U/L (13-61) 10/18/18 06:00 Alkaline Phosphatase 49 U/L (45-117) 10/18/18 06:00 Total Protein 6.4 g/dl (6.4-8.2) 10/18/18 06:00 Albumin 3.0 g/dl (3.4-5.0) L 10/18/18 06:00 Current Medications Generic Name Dose Route Start Last Admin Trade Name Freq PRN Reason Stop Dose Admin Acetaminophen 650 mg 10/17/18 19:17 10/19/18 06:21 Tylenol - PO 650 mg Q4H PRN Administration FEVER Enoxaparin Sodium 40 mg 10/18/18 10:00 10/18/18 10:20 Lovenox - SQ Not Given DAILY BILLY Lactated Ringer's 1,000 ml in 1,000 mls @ 125 mls/hr 10/17/18 16:45 10/19/18 00:45 Lactated Ringers Solution IV 125 mls/hr ASDIR BILLY Administration Ceftriaxone Sodium 2 gm/ 100 mls @ 200 mls/hr 10/18/18 10:00 10/18/18 10:20 Dextrose IVPB 200 mls/hr DAILY BILLY Administration Home Medications Medication Instructions Recorded NK [No Known Home Medication] 10/17/18 Microbiology 10/17/18 14:23 Urine - Urine Clean Catch Urine Culture - Final Escherichia Fergusonii 10/17/18 15:00 Blood - Peripheral Venous Blood Culture - Preliminary NO GROWTH OBTAINED AFTER 24 HOURS, INCUBATION TO CONTINUE FOR 4 DAYS. 10/17/18 15:00 Blood - Peripheral Venous Blood Culture - Preliminary NO GROWTH OBTAINED AFTER 24 HOURS, INCUBATION TO CONTINUE FOR 4 DAYS. ASSESSMENT AND PLAN: 23 yo with a PMHx of non-op appendicitis (last year), HPV, presented with 7/10 , intermittent, non-radiating, RLQ abdominal pain, fevers, chills with urinary discomfort. #Sepsis due Escherichia Fergusonii with Acute Pyelonephritis with Complicated UTI,sensitive to Rocephin will continue IV antibiotic ceftriaxone 2gm daily, IV fluids, Bcx is neagtive so far,ucx as above ; Tylenol PRN for pain/fever. will get ID to see the patient. Dvt Px: lovenox 40 sq
[2018-10-19] MEDS: ENOXAPARIN NA (PORCINE) 40 MG/0.4 ML DISP.SYRIN SQ SCH ×2 (10:04→11:22)
[2018-10-19] MEDS: CEFTRIAXONE 2 GM in DEXTROSE 5%-WATER 100 ML IVPB SCH (10:04)
--- NOTE | 2018-10-19 12:20 | PN ---
Progress Note (short form) - Note Progress Note: ID CONSULT DICTATED UTI/ POSSIBLE R PYELONEPHRITIS ? RUPTURED OVARIAN CYST ? APPENDICITIS PERSISTANT FEVER REPEAT BC SUBSTITUTE CEFAZOLIN 2GM Q8H SURGICAL EVALUATION R/O APPENDICITIS
--- NOTE | 2018-10-19 14:45 | CONS ---
INFECTIOUS DISEASE CONSULTATION DATE OF CONSULTATION: DATE OF DICTATION: 10/19/2018 HISTORY OF PRESENT ILLNESS: The patient is a 23-year-old, previously healthy female, evaluated for fever. The patient presented to the hospital on September____2018, with a 3-day history of right lower quadrant abdominal pain and constipation. She reports the pain was moderately severe and localized to the right lower quadrant. It was associated with constipation. She had a bowel movement with improvement in the pain. She also noted some dysuria and urinary frequency. She had presented to an urgent care center where she was diagnosed with a urinary tract infection. The patient developed persistent discomfort which now involved the lower quadrants of the abdomen and was associated with fever. She presented to the emergency room where her temperature was 102.8. She was noted to be tachycardiac. A CAT scan of the abdomen and pelvis was obtained and showed no definite evidence of acute appendicitis, although the appendix was not definitely identified. There were cystic changes involving the right adnexa with free pelvic fluid suggestive of a recent cyst rupture, thick-walled urinary bladder, possible cystitis. Her white blood cell count was noted to be 10.2. Urinalysis showed many white cells. Urine culture grew E fergusonii. She was treated with ceftriaxone. Her clinical course was significant for improvement in the abdominal pain. She continues to have some right paraumbilical and right flank discomfort associated with some mild dysuria. No nausea, vomiting. No diarrhea. PAST MEDICAL HISTORY: According to the patient was positive for 2 episodes of appendicitis which were treated medically at other hospitals. She also has a history of ovarian cysts. ALLERGIES: No known allergies. MEDICATIONS: Tylenol, ceftriaxone, Lovenox, magnesium. 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 She is a nonsmoker, nondrinker. SYSTEMS REVIEW: Neurologic: No loss of consciousness, seizure activity or focal weakness. Cardiac: Negative chest pain or palpitations. Respiratory: Negative cough or sputum production. Gastrointestinal: As per HPI. Genitourinary: As per HPI. LABORATORY DATA: White count on admission 10.2, presently 7.0, hematocrit 27.5, platelet count 164. Urinalysis: White cells 303. BUN 3, creatinine 0.6. Liver enzymes normal. Chlamydia and gonorrhea PCR are pending. Blood culture is negative. Urine culture: E fergusonii. IMAGING: CAT scan, as previously described. Transvaginal sonogram: Small left ovarian cyst with bilateral adnexal free fluid. Chest x-ray: No acute pathology. PHYSICAL EXAMINATION: General: She is out of bed to chair. She is not acutely toxic appearing, thin female. Vital Signs: Temperature 102.8, blood pressure 101/58, pulse 89, regular, respirations 18 per minute. Eyes: Sclerae are anicteric. Heart: Heart sounds S1, S2. Lungs: Clear. Abdomen: Soft. No tenderness elicited. No mass, rebound or rigidity. No CVA tenderness on exam. No tenderness at McBurney point. Extremities: Negative for edema. Negative Homans sign. IMPRESSION: 1. Urinary tract infection. Possible right pyelonephritis. 2. Probable ruptured ovarian cyst. 3. Possible appendicitis. PLAN: Will repeat blood cultures in light of her current fever. Substitute cefazolin 2 g IV piggyback every 8 hours. Would obtain surgical consult in light of prior history of appendicitis per patient. Will follow. Thank you for the kind referral. CORINNA ANDERSON M.D. [id number]
--- NOTE | 2018-10-19 15:07 | PN ---
Physical Exam: SUBJECTIVE: Patient seen and examined seen and examined at bedside this morning. Patient had fever overnight accompanied by right-sided lower back pain. OBJECTIVE: Vital Signs Period Temp Pulse Resp BP Sys/Noel Pulse Ox Last 24 Hr 98 F-102.8 F 84-92 18-20 98-106/55-83 100 GENERAL: The patient is awake, alert, and fully oriented, in no acute distress. HEAD: Normal with no signs of trauma. EYES: PERRLA, EOMI, sclera anicteric, conjunctiva clear. ENT: Ears normal, nares patent, oropharynx clear without exudates, moist mucous membranes. NECK: Trachea midline, full range of motion, supple. LUNGS: Breath sounds equal, clear to auscultation bilaterally. HEART: Regular rate and rhythm, S1, S2 without murmur, rub or gallop. ABDOMEN: Soft, +RLQ tenderness, nondistended, normoactive bowel sounds, +right CVA tenderness EXTREMITIES: 2+ pulses, warm, well-perfused, no edema. NEUROLOGICAL: Cranial nerves II through XII grossly intact. Normal speech, gait not observed. PSYCH: Normal mood, normal affect. SKIN: Warm, dry, normal turgor, no rashes or lesions noted Laboratory Results - last 24 hr 10/19/18 10/19/18 06:30 06:30 WBC 7.0 RBC 3.22 L Hgb 9.5 L Hct 27.5 L MCV 85.3 MCH 29.6 MCHC 34.7 RDW 13.2 Plt Count 164 MPV 8.3 Sodium 138 Potassium 3.7 Chloride 106 Carbon Dioxide 28 Anion Gap 5 L BUN 3 L Creatinine 0.6 Creat Clearance w eGFR > 60 Random Glucose 89 Calcium 7.5 L Phosphorus 2.7 Magnesium 2.0 Active Medications Generic Name Dose Route Start Last Admin Trade Name Freq PRN Reason Stop Dose Admin Acetaminophen 650 mg 10/17/18 19:17 10/19/18 06:21 Tylenol - PO 650 mg Q4H PRN Administration FEVER Enoxaparin Sodium 40 mg 10/18/18 10:00 10/19/18 11:22 Lovenox - SQ Not Given DAILY BILLY Lactated Ringer's 1,000 ml in 1,000 mls @ 125 mls/hr 10/17/18 16:45 10/19/18 00:45 Lactated Ringers Solution IV 125 mls/hr ASDIR BILLY Administration Cefazolin Sodium/Dextrose 2 gm in 50 mls @ 100 mls/hr 10/19/18 12:30 Ancef 2 Gm Premixed Ivpb - IVPB Q8H-IV BILLY -TVS: Small left ovarian cyst with bilateral adnexal free fluid -CT AP: No definite evidence of acute appendicitis. Cystic changes right adnexa with free pelvic fluid. Thick-walled urinary bladder. ASSESSMENT/PLAN: Patient is a 23 year old female with no significant past medical history presented with intermittent 7/10 cramping RLQ pain and dysuria for 2 days. #Sepsis 2/2 Complicated UTI, Acute Pyelonephritis -UA on admission: 3+LE, 303WBC -Blood culture - no growth -Urine culture - E. fergusonii -Continue IV fluids -Tylenol 650mg PRN for fever or pain. -ID (Dr. Welsh) consulted. REcommendations appreciated. -Ceftriaxone 2gm increased to q8h -Surgery consult to rule out appendicitis. #FEN -IV LR @125ml/hr -Electrolytes wnl, routine bmp monitoring -Regular diet #Prophylaxis -Lovenox 40mg sq daily #Disposition -full code -admit to med-surg Visit type - Emergency Visit Emergency Visit: Yes ED Registration Date: 10/18/18 Care time: The patient presented to the Emergency Department on the above date and was hospitalized for further evaluation of their emergent condition. - New Patient This patient is new to me today: No - Critical Care Critical Care patient: No
--- NOTE | 2018-10-19 15:47 | CONSULT ---
- Consultation REQUESTING PROVIDER: CONSULT REQUEST: We have been asked to surgically evaluate this patient for abd pain /r/o appendicitis. PCP:Aurora Restrepo HISTORY OF PRESENT ILLNESS: The patient is a 23 yo female who presented to the ER with the complaints of lower abd pain. She said that her symptoms started about 2 days ago on Monday. She did have some constipation for several days prior to her lower abd pain. On Monday am, she had a bowel movment. Later having lower abd pain with nausea, fever and chills. She denies any dysuria although having some discomfort with urinating. She has a history of being treated for appendicitis(non-operative). Denies any vaginal discharge. Currently she is tolerating a diet. Pt seen and examined today with Dr. Funk. Pt has been having fevers while in the hospital. She denies any fevers. PMHx: ?PCOS, HPV PSHx: Home Medications Medication Instructions Recorded NK [No Known Home Medication] 10/17/18 Allergies Allergy/AdvReac Type Severity Reaction Status Date / Time No Known Allergies Allergy Verified 02/14/18 08:36 REVIEW OF SYSTEMS: CONSTITUTIONAL: Present: fever, chills GASTROINTESTINAL: Present: abdominal pain, abdominal distension, nausea, vomiting GENITOURINARY: Present: urinary discomfort PHYSICAL EXAM: GENERAL: Awake, alert, and fully oriented, in no acute distress. ABDOMEN: Soft, nontender, not distended. MUSCULOSKELETAL: Mild Right CVA tenderness. Vital Signs Temperature 98.8 F 10/19/18 10:00 Pulse Rate 88 10/19/18 10:00 Respiratory Rate 20 10/19/18 10:00 Blood Pressure 100/60 10/19/18 10:00 O2 Sat by Pulse Oximetry (%) 100 10/18/18 21:00 Lab Results WBC 7.0 K/mm3 (4.0-10.0) 10/19/18 06:30 RBC 3.22 M/mm3 (3.60-5.2) L 10/19/18 06:30 Hgb 9.5 GM/dL (10.7-15.3) L 10/19/18 06:30 Hct 27.5 % (32.4-45.2) L 10/19/18 06:30 MCV 85.3 fl (80-96) 10/19/18 06:30 MCHC 34.7 g/dl (32.0-36.0) 10/19/18 06:30 RDW 13.2 % (11.6-15.6) 10/19/18 06:30 Plt Count 164 K/MM3 (134-434) 10/19/18 06:30 Sodium 138 mmol/L (136-145) 10/19/18 06:30 Potassium 3.7 mmol/L (3.5-5.1) 10/19/18 06:30 Chloride 106 mmol/L (98-107) 10/19/18 06:30 Carbon Dioxide 28 mmol/L (21-32) 10/19/18 06:30 Anion Gap 5 MMOL/L (8-16) L 10/19/18 06:30 BUN 3 mg/dL (7-18) L 10/19/18 06:30 Creatinine 0.6 mg/dL (0.55-1.3) 10/19/18 06:30 Random Glucose 89 mg/dL (74-106) 10/19/18 06:30 Calcium 7.5 mg/dL (8.5-10.1) L 10/19/18 06:30 Blood Type O POSITIVE 10/17/18 15:00 Antibody Screen Negative 10/17/18 15:00 INR 1.34 (0.83-1.09) H 10/17/18 15:00 CT Scan: cyst in right adenxa and free fluid in the pelvis. No evidence of inflammation surrounding the appendix/colon. Appendix not visualized/controast in the small bowel. US: bilateral adenexal free fluid. Left ovarian cyst. Laboratory Tests 10/17/18 10/17/18 10/17/18 14:23 14:23 15:45 WBC Hgb Hct MCH Urine Color Yellow Urine Appearance Slcloudy Urine pH 5.0 D Ur Specific [place] 1.015 Urine Protein 1+ H Urine Glucose (UA) Negative Urine Ketones 1+ H Urine Blood 2+ H Urine Nitrite Negative Urine Bilirubin Negative Urine Urobilinogen Negative Ur Leukocyte Esterase 3+ H Urine WBC (Auto) 303 Urine RBC (Auto) 25 Ur Epithelial Cells Rare Urine Bacteria Many Urine Mucus Few Urine HCG, Qual Negative C. trachomatis (BRINA) Pending N. gonorrhoeae (BRINA) Pending 10/19/18 06:30 WBC 7.0 Hgb 9.5 L Hct 27.5 L MCH 29.6 Urine Color Urine Appearance Urine pH Ur Specific [place] Urine Protein Urine Glucose (UA) Urine Ketones Urine Blood Urine Nitrite Urine Bilirubin Urine Urobilinogen Ur Leukocyte Esterase Urine WBC (Auto) Urine RBC (Auto) Ur Epithelial Cells Urine Bacteria Urine Mucus Urine HCG, Qual C. trachomatis (BRINA) N. gonorrhoeae (BRINA) Microbiology 10/17/18 14:23 Urine - Urine Clean Catch Urine Culture - Final Escherichia Fergusonii 10/17/18 15:00 Blood - Peripheral Venous Blood Culture - Preliminary NO GROWTH OBTAINED AFTER 48 HOURS, INCUBATION TO CONTINUE FOR 3 DAYS. 10/17/18 15:00 Blood - Peripheral Venous Blood Culture - Preliminary NO GROWTH OBTAINED AFTER 48 HOURS, INCUBATION TO CONTINUE FOR 3 DAYS. Problem List - Problems (1) Abdominal pain Assessment/Plan: Pt currently not having any abd pain and tolerating a diet. Clinically no signs of appendicitis. Pain in lower abd could also be present becasue of free fluid within the pelvis. Code(s): R10.9 - UNSPECIFIED ABDOMINAL PAIN Qualifiers: Abdominal location: right lower quadrant Qualified Code(s): R10.31 - Right lower quadrant pain (2) UTI (urinary tract infection) Assessment/Plan: Urinary culture positive and IV abx changed to cover bacteria sensitivity. She is having mild right flank pain with fevers clinically consistant with pyelonephritis Code(s): N39.0 - URINARY TRACT INFECTION, SITE NOT SPECIFIED Qualifiers: Urinary tract infection type: acute cystitis Hematuria presence: without hematuria Qualified Code(s): N30.00 - Acute cystitis without hematuria
[2018-10-19] MEDS: CEFAZOLIN 2 GM/D5W 2 GM/50 ML ML IVPB SCH ×2 (16:58→17:21)
[2018-10-20] MEDS: CEFAZOLIN 2 GM/D5W 2 GM/50 ML ML IVPB SCH ×2 (02:15→09:50)
[2018-10-20 07:26] LABS: BASO % 0.3 % (0-2.0); EOS % 1.7 % (0-4.5); HEMATOCRIT 27.8 % (32.4-45.2); HEMOGLOBIN 9.6 GM/dL (10.7-15.3); MCH 29.5 pg (25.7-33.7); MCHC 34.3 g/dl (32.0-36.0); MEAN CELL VOLUME 85.9 fl (80-96); MONO % 15.4 % (3.8-10.2); NEUT % 60.6 % (42.8-82.8); PLATELET COUNT 182 K/MM3 (134-434); RBC 3.24 M/mm3 (3.60-5.2); RDW 13.1 % (11.6-15.6)
[2018-10-20 08:21] LABS: ANION GAP 6 MMOL/L (8-16); BLOOD UREA NITROGEN 4 mg/dL (7-18); CHLORIDE 106 mmol/L (98-107); CO2 26 mmol/L (21-32); CREATININE 0.6 mg/dL (0.55-1.3); GLUCOSE,RANDOM 81 mg/dL (74-106); MAGNESIUM 1.9 mg/dL (1.8-2.4); PHOSPHOROUS 3.5 mg/dL (2.5-4.9); POTASSIUM 3.7 mmol/L (3.5-5.1); SODIUM 138 mmol/L (136-145)
[2018-10-20] MEDS: ENOXAPARIN NA (PORCINE) 40 MG/0.4 ML DISP.SYRIN SQ SCH (09:53)
--- NOTE | 2018-10-20 12:36 | PN ---
Progress Note (short form) - Note Progress Note: Vital Signs Temperature 98.8 F 10/20/18 10:00 Pulse Rate 88 10/20/18 10:00 Respiratory Rate 18 10/20/18 10:00 Blood Pressure 108/60 10/20/18 10:00 O2 Sat by Pulse Oximetry (%) 100 10/18/18 21:00 GENERAL: Awake, alert, and fully oriented, in no acute distress. HEAD: Normal with no signs of trauma. EYES: extraocular movements intact, sclera anicteric, conjunctiva clear. EARS, NOSE, THROAT: oropharynx clear without exudates. Moist mucous membranes. NECK: supple without lymphadenopathy, JVD, or masses. LUNGS: Breath sounds equal, clear to auscultation bilaterally. No wheezes, and no crackles. HEART: Regular rate and rhythm, normal S1 and S2 without murmur, rub or gallop. ABDOMEN: soft,R mild CVA tenderness today, no guarding, no rebound, EXTREMITIES: 2+ pulses, warm, well-perfused. No cyanosis. No clubbing. No peripheral edema. NEUROLOGICAL: Cranial nerves II-XII intact. Normal speech. Normal gait. PSYCHIATRIC: Cooperative. Good eye contact. Appropriate mood and affect. SKIN: Warm, dry, normal turgor, no rashes or lesions noted, normal capillary refill. CBCD WBC 5.0 K/mm3 (4.0-10.0) 10/20/18 06:00 RBC 3.24 M/mm3 (3.60-5.2) L 10/20/18 06:00 Hgb 9.6 GM/dL (10.7-15.3) L 10/20/18 06:00 Hct 27.8 % (32.4-45.2) L 10/20/18 06:00 MCV 85.9 fl (80-96) 10/20/18 06:00 MCHC 34.3 g/dl (32.0-36.0) 10/20/18 06:00 RDW 13.1 % (11.6-15.6) 10/20/18 06:00 Plt Count 182 K/MM3 (134-434) 10/20/18 06:00 MPV 8.0 fl (7.5-11.1) 10/20/18 06:00 CMP Sodium 138 mmol/L (136-145) 10/20/18 06:00 Potassium 3.7 mmol/L (3.5-5.1) 10/20/18 06:00 Chloride 106 mmol/L (98-107) 10/20/18 06:00 Carbon Dioxide 26 mmol/L (21-32) 10/20/18 06:00 Anion Gap 6 MMOL/L (8-16) L 10/20/18 06:00 BUN 4 mg/dL (7-18) L 10/20/18 06:00 Creatinine 0.6 mg/dL (0.55-1.3) 10/20/18 06:00 Creat Clearance w eGFR > 60 (>60) 10/20/18 06:00 Random Glucose 81 mg/dL (74-106) 10/20/18 06:00 Calcium 8.0 mg/dL (8.5-10.1) L 10/20/18 06:00 Total Bilirubin 0.6 mg/dL (0.2-1) 10/18/18 06:00 AST 13 U/L (15-37) L 10/18/18 06:00 ALT 13 U/L (13-61) 10/18/18 06:00 Alkaline Phosphatase 49 U/L (45-117) 10/18/18 06:00 Total Protein 6.4 g/dl (6.4-8.2) 10/18/18 06:00 Albumin 3.0 g/dl (3.4-5.0) L 10/18/18 06:00 Current Medications Generic Name Dose Route Start Last Admin Trade Name Freq PRN Reason Stop Dose Admin Acetaminophen 650 mg 10/17/18 19:17 10/19/18 06:21 Tylenol - PO 650 mg Q4H PRN Administration FEVER Enoxaparin Sodium 40 mg 10/18/18 10:00 10/20/18 09:53 Lovenox - SQ Not Given DAILY BILLY Lactated Ringer's 1,000 ml in 1,000 mls @ 125 mls/hr 10/17/18 16:45 10/19/18 16:58 Lactated Ringers Solution IV Not Given ASDIR BILLY Cefazolin Sodium/Dextrose 2 gm in 50 mls @ 100 mls/hr 10/19/18 12:30 09:50 Ancef 2 Gm Premixed Ivpb - IVPB 100 mls/hr Q8H-IV BILLY Administration Home Medications Medication Instructions Recorded NK [No Known Home Medication] 10/17/18 A/P: 23 yo with a PMHx of non-op appendicitis (last year), HPV, presented with 7/10 , intermittent, non-radiating, RLQ abdominal pain, fevers, chills with urinary discomfort. #Sepsis due Escherichia Fergusonii with Acute Pyelonephritis with Complicated UTI,sensitive to Rocephin will continue IV antibiotic ceftriaxone 2gm daily, IV fluids, Bcx is neagtive so far,ucx as above ; Tylenol PRN for pain/fever. will get ID to see the patient. Dvt Px: lovenox 40 sq
--- NOTE | 2018-10-20 14:49 | DS ---
Physical Exam: SUBJECTIVE: Patient seen and examined Patient is comfortable with no acute distress, no shortness of breath, no nausea or vomiting. No fever or chills, no shortness of breath. OBJECTIVE: Vital Signs Temperature 98.8 F 10/20/18 10:00 Pulse Rate 88 10/20/18 10:00 Respiratory Rate 18 10/20/18 10:00 Blood Pressure 108/60 10/20/18 10:00 O2 Sat by Pulse Oximetry (%) 100 10/18/18 21:00 PHYSICAL EXAM GENERAL: Awake, alert, and fully oriented, in no acute distress. HEAD: Normal with no signs of trauma. EYES: extraocular movements intact, sclera anicteric, conjunctiva clear. EARS, NOSE, THROAT: oropharynx clear without exudates. Moist mucous membranes. NECK: supple without lymphadenopathy, JVD, or masses. LUNGS: Breath sounds equal, clear to auscultation bilaterally. No wheezes, and no crackles. HEART: Regular rate and rhythm, normal S1 and S2 without murmur, rub or gallop. ABDOMEN: soft, No CVA tenderness today, no guarding, no rebound, EXTREMITIES: 2+ pulses, warm, well-perfused. No cyanosis. No clubbing. No peripheral edema. NEUROLOGICAL: Cranial nerves II-XII intact. Normal speech. Normal gait. PSYCHIATRIC: Cooperative. Good eye contact. Appropriate mood and affect. SKIN: Warm, dry, normal turgor, no rashes or lesions noted, normal capillary refill. LABS Laboratory Results - last 24 hr 10/17/18 10/20/18 10/20/18 15:45 06:00 06:00 WBC 5.0 RBC 3.24 L Hgb 9.6 L Hct 27.8 L MCV 85.9 MCH 29.5 MCHC 34.3 RDW 13.1 Plt Count 182 MPV 8.0 Absolute Neuts (auto) 3.1 Neutrophils % 60.6 Lymphocytes % 22.0 D Monocytes % 15.4 H Eosinophils % 1.7 D Basophils % 0.3 Nucleated RBC % 0 Sodium 138 Potassium 3.7 Chloride 106 Carbon Dioxide 26 Anion Gap 6 L BUN 4 L Creatinine 0.6 Creat Clearance w eGFR > 60 Random Glucose 81 Calcium 8.0 L Phosphorus 3.5 Magnesium 1.9 C. trachomatis (BRINA) Negative N. gonorrhoeae (BRINA) Negative Home Medications Medication Instructions Recorded NK [No Known Home Medication] 10/17/18 Microbiology 10/19/18 13:40 Blood - Peripheral Venous Blood Culture - Preliminary NO GROWTH OBTAINED AFTER 24 HOURS, INCUBATION TO CONTINUE FOR 4 DAYS. 10/17/18 15:00 Blood - Peripheral Venous Blood Culture - Preliminary NO GROWTH OBTAINED AFTER 48 HOURS, INCUBATION TO CONTINUE FOR 3 DAYS. 10/17/18 15:00 Blood - Peripheral Venous Blood Culture - Preliminary NO GROWTH OBTAINED AFTER 48 HOURS, INCUBATION TO CONTINUE FOR 3 DAYS. 10/17/18 14:23 Urine - Urine Clean Catch Urine Culture - Final Escherichia Fergusonii HOSPITAL COURSE: Date of Admission:10/18/18 Date of Discharge: 10/20/18 Patient is a 23yo with a PMHx of non-op appendicitis (last year), HPV, presented with 7/10, intermittent, non-radiating, RLQ abdominal pain, fevers, chills with urinary discomfort. #Sepsis due Escherichia Fergusonii with with Acute Pyelonephritis with Complicated UTI,sensitive to Rocephin will , will discharge the patient home on Levaquin 500mg po daily x 5 days . received 3 days of IV antibiotic ceftriaxone 2gm , Bcx is negative so far, ucx as above ; Tylenol PRN for pain/ fever. discharge patient home. Minutes to complete discharge: 35 Discharge Summary Reason For Visit: UTI/CYST OF OVARY/ABD PAIN Current Active Problems Abdominal pain (Acute) UTI (urinary tract infection) (Acute) Condition: Good - Instructions - Home Medications Comprehensive Discharge Medication List: Ambulatory Orders NK [No Known Home Medication] 10/17/18 This patient is new to me today: No Emergency Visit: Yes ED Registration Date: 10/18/18 Care time: The patient presented to the Emergency Department on the above date and was hospitalized for further evaluation of their emergent condition. Critical Care patient: No - Discharge Referral Referred to [facility] Med [facility] No
[2018-10-20 14:56] VITALS: BP 107/66; PULSE 70; TEMP 98.4
== END 2018-10-20 18:04 | disposition home or self-care (01) | DRG 872 ==
LOC: JER 14:02 → JERBED 18:41 → INTOOBSV 18:41 → J8W 20:30 → OBSVTOIN 10-18 09:00
PROVIDERS: ADMIT Internal Medicine; ATTEND Internal Medicine
DX: A41.51 Sepsis due to Escherichia coli [E. coli] (principal); N10 Acute pyelonephritis; K59.00 Constipation, unspecified; N83.202 Unspecified ovarian cyst, left side
CPT/HCPCS: 36415; 71045-TC-FY; 74177-TC; 76830-TC; 80048; 80053; 81003; 81015; 83605; 83690; 83735; 84100; 84703; 85025; 85027; 85610; 85730; 86850; 86900; 86901; 87040; 87086; 87186; 87491; 87591; 93005; 93010; 99283-25; G0378; J0131; J7030; Q9967